=== PATIENT | female | born 1980 | race Caucasian/White ===

== ENCOUNTER → 2018-01-17 | Emergency (ER) | payer OTHER ==
[~2018-01-17] VITALS: Ht 149.9 cm; Wt 49.0 kg
[~2018-01-17] MED LIST: ACIDOPHILUS1 EAC3 PO; AIRBORNE EFFER1 EACH PO; BUDESONIDE0.5 MG/2 M IH; CELEBREX100 MG PO; CIPRO XR 5500 MG/BOT PO; IPRAT-ALBUT 0.5-3 ML IH; METHIMAZOLE5 GM; MUCINEX DM ER1 EAC1 PO; PROMETH-CODEIN 65 ML PO; TAPAZOLE5 M1; TRAM1TAB98 PO; ZANTAC300 MG PO
== END | disposition home or self-care (01) ==
LOC: ER 22:35
DX: J06.9 Acute upper respiratory infection, unspecified (principal)

== ENCOUNTER 2018-09-22 21:01 | Emergency (ER) | payer OTHER ==
[~2018-09-22] VITALS: Ht 149.9 cm; Wt 49.9 kg
== END 2018-09-23 00:28 | disposition home or self-care (01) ==
LOC: ER 21:01
DX: K29.70 Gastritis, unspecified, without bleeding (principal)

== ENCOUNTER 2023-04-25 10:32 | Emergency (ER) | payer OTHER ==
[~2023-04-25] VITALS: Ht 149.9 cm; Wt 57.6 kg
== END 2023-04-25 11:35 | disposition home or self-care (01) ==
LOC: ER 10:32
DX: G43.829 Menstrual migraine, not intractable, without status migrainosus (principal)

== ENCOUNTER → 2023-10-10 | Emergency (ER) | payer OTHER ==
[~2023-10-10] VITALS: Ht 149.9 cm; Wt 58.5 kg
[~2023-10-10] MED LIST changes: +FLONASE16 GM NASAL; +OSEL75CA PO; +TUSSIN DM SYRU118 ML PO
== END | disposition left against medical advice (07) ==
LOC: ER 23:39
DX: Z53.21 Procedure and treatment not carried out due to patient leaving prior to being seen by health care provider (principal)

== ENCOUNTER 2023-10-11 13:34 | Emergency (ER) | payer OTHER ==
[~2023-10-11] VITALS: Ht 149.9 cm; Wt 58.5 kg
[~2023-10-11 13:34] MED LIST changes: -FLONASE16 GM NASAL; -OSEL75CA PO; -TUSSIN DM SYRU118 ML PO
[2023-10-11] MEDS ORDERED: GUAIFENESIN/DEXTROMETHORPHAN 100 MG/5 ML ML PO ONE (15:45)
[2023-10-11] MEDS ORDERED: KETOROLAC TROMETHAMINE 60 MG VIAL IM ONE (15:45)
[2023-10-11] MEDS ORDERED: CETIRIZINE HCL 5 MG/5 ML ML PO ONE (15:45)
[2023-10-11 17:00] LABS: HEMOGLOBIN 13.7 g/dL (12.0-15.00); MEAN CELL VOLUME 91.5 fL (80.00-100.00); MEAN CORPUSCULAR HEMOGLOBIN 30.6 pg (27.00-32.0); MEAN CORPUSCULAR HGB CONC 33.4 g/dl (32.0-36.0); PLATELET COUNT 226 K/uL (150-450); RED BLOOD COUNT 4.48 M/uL (4.00-6.00); RED CELL DISTRIBUTION WIDTH 12.8 % (11.5-14.5)
[2023-10-11] MEDS ORDERED: FLONASE16 GM NASAL (17:56)
[2023-10-11] MEDS ORDERED: TUSSIN DM SYRU118 ML PO (17:56)
[2023-10-11] MEDS ORDERED: OSEL75CA PO (17:56)
[2023-10-11] MEDS ORDERED: DIPHENHYDRAMINE HCL 50 MG/ML VIAL 1ML IM ONE (20:00)
[2023-10-11] MEDS ORDERED: DEXAMETHASONE SODIUM PHOSPHATE 4 MG/ML VIAL IM ONE (20:00)
== END 2023-10-11 20:21 ==
LOC: ER 13:34
PROVIDERS: Nurse Practitioner Family
DX: B34.9 Viral infection, unspecified (principal); J00 Acute nasopharyngitis [common cold]; Z20.822 Contact with and (suspected) exposure to COVID-19